=== PATIENT | male | born 1975 | race Caucasian/White ===

== ENCOUNTER 2018-07-11 19:37 | Emergency (ER) | payer OTHER, BC ==
[~2018-07-11] VITALS: Ht 182.9 cm; Wt 88.5 kg
[2018-07-11] MEDS ORDERED: METHYLPREDNISOLO4 M1 PO (19:50)
[2018-07-11] MEDS ORDERED: CLARITIN10 MG PO (19:53)
[2018-07-11] MEDS ORDERED: PREDNISONE20 MG PO (20:15)
== END 2018-07-11 20:29 | disposition home or self-care (01) ==
LOC: ED 19:37
DX: L23.7 Allergic contact dermatitis due to plants, except food (principal); Z79.899 Other long term (current) drug therapy
CPT/HCPCS: 99282; J7512

== ENCOUNTER 2024-09-07 09:12 | Day surgery (SDC) | payer BC ==
[~2024-09-07] VITALS: Ht 182.9 cm; Wt 96.0 kg
[~2024-09-07 09:12] MED LIST: CLARITIN10 MG PO; IBLOOD GLUCOSE TEST STRIP 1 EA TEST VI PRN; LACTATED RINGER'S 1,000 ML IV SCH; LIDOCAINE HCL 1% 5 ML SDV INJ ONE; METHYLPREDNISOLO4 M1 PO; MIDAZOLAM HCL 5 MG/5 ML VIAL IV PRN; PREDNISONE20 MG PO; fentaNYL citrate 100 MCG/2 ML VIAL IV PRN
[2024-09-07 09:47] VITALS: BP 141/84
[2024-09-07] MEDS ORDERED: fentaNYL citrate 100 MCG/2 ML VIAL ONE (10:29)
[2024-09-07] MEDS ORDERED: MIDAZOLAM HCL 5 MG/5 ML VIAL ONE (10:29)
--- NOTE | 2024-09-07 11:14 | NUR ---
09/07/24 1114 Madisyn Caballero PT TO PACU SLEEPING BUT AROUSABLE TO VERBAL STIMULI. PT DENIES PAIN AND NAUSEA, PT PASSING GAS.
[2024-09-07 11:42] VITALS: BP 104/72
--- NOTE | 2024-09-08 06:15 | OR ---
[facility] [address], [place] [address] Signed DATE OF OPERATION: 09/07/2024 SURGEON: Mario Rothman MD PREOPERATIVE DIAGNOSIS: Screening. POSTOPERATIVE DIAGNOSIS: Minimal internal hemorrhoids. PROCEDURE: Colonoscopy without biopsy. ESTIMATED BLOOD LOSS: None. 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 He was asked to see me for routine screening colonoscopy. He has no lower GI complaints. There is no family history of colon cancer or polyps. He thinks he has asthma and told me that the diagnosis of COPD would be incorrect based on his pulmonary function test. He is still able to work as a coal trimmer despite his concern over asthma. In the office, I gave him a pamphlet on colonoscopy. We discussed the nature of the test. There is risk including, but not limited to gas bloating, crampy abdominal pain, bleeding, perforation requiring surgery, and missed diagnosis. We also reviewed the written instructions for the bowel prep line by line. He also understands the need for IV conscious sedation. 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 He understands an adult person has to take him home afterwards. He said that would be his . He had expressed understanding and wished to proceed. PROCEDURE IN DETAIL: Oneyda was taken into our endoscopy suite and placed in the left lateral decubitus position. He was given IV sedation with 125 mcg of fentanyl and 7 mg of Versed. A digital rectal exam was performed. This was unremarkable. He had no external hemorrhoids. He had good sphincter tone. There were no masses. The adult colonoscope was introduced and advanced all around into the cecum under direct visualization of the camera without difficulty. His prep was quite excellent. We could easily see the appendiceal orifice and the ileocecal valve. The scope was then slowly withdrawn. He had no pathology throughout the entire colon or rectum. He would have very minimal Electronically Signed By: MARIO ROTHMAN MD 09/08/24 0615 PATIENT NAME: ONEYDA REID OPERATIVE REPORT DATE OF : 75 REPORT #: [id number] PHYSICIAN: MARIO ROTHMAN MD PCP: NIDHI RUIZ MD REPORT IS CONFIDENTIAL AND NOT TO BE RELEASED WITHOUT AUTHORIZATION [facility] [address] [place] [id number] Signed internal hemorrhoid columns. After this, the gas was suctioned out and the colonoscope removed. Oneyda tolerated the procedure quite well. RECOMMENDATIONS: Oneyda can return in 10 years for repeat screening colonoscopy. Mario Rothman MD ALB/MODL /[id number] cc: MD Nidhi Khan MD Copies: MARIO ROTHMAN MD, RUSSELL BARR MD ~ Electronically Signed By: MARIO ROTHMAN MD 09/08/24 0615 PATIENT NAME: ONEYDA REID OPERATIVE REPORT DATE OF : 75 REPORT #: [id number] PHYSICIAN: MARIO ROTHMAN MD PCP: NIDHI RUIZ MD REPORT IS CONFIDENTIAL AND NOT TO BE RELEASED WITHOUT AUTHORIZATION
== END 2024-09-07 11:50 | disposition home or self-care (01) ==
LOC: DS 09:12
PROVIDERS: ATTEND Colon & Rectal Surgery
PROC: 0DJD8ZZ Inspection of Lower Intestinal Tract, Via Natural or Artificial Opening Endoscopic (ICD-10-PCS; principal; 2024-09-07 10:30)
DX: Z12.11 Encounter for screening for malignant neoplasm of colon (principal); K64.8 Other hemorrhoids; J44.9 Chronic obstructive pulmonary disease, unspecified; E78.00 Pure hypercholesterolemia, unspecified; E55.9 Vitamin D deficiency, unspecified
CPT/HCPCS: 99153; G0500; J2250; J3010; J7121